=== PATIENT | male | born 1955 | race Caucasian/White ===

== ENCOUNTER → 2016-05-24 | Outpatient (CLI) | payer BC ==
[2016-05-24 14:03] LABS: Basophils % (A) 1 %; CH 30.5; Eosinophils # (A) 0.2 k/uL (0-0.7); Eosinophils % (A) 4 %; HCT 45.9 % (39.0-53.0); HDW 2.73; HGB 15.6 gm/dL (13.0-17.5); Luc # (Auto) 0.22; Luc % (Auto) 4; Lymphocytes # (A) 1.8 k/uL (1.0-4.8); Lymphocytes % (A) 32 %; MCH 30.6 pg (25.0-35.0); Mean Platelet Volume 8.8; Monocytes # (A) 0.3 k/uL (0-1.0); Monocytes % (A) 5 %; Neutrophils # (A) 3.1 k/uL (1.3-7.7); Neutrophils % (A) 55 %; RBC 5.09 m/uL (4.30-5.90); RDW 13.5 % (11.5-15.5); WBC 5.7 k/uL (3.8-10.6); WBC (Perox) 5.74
[2016-05-24 14:10] LABS: Appearance,Urine Clear (Clear); Bilirubin,Urine Negative (Negative); Glucose,Urine (UA) Negative (Negative); Ketones,Urine Negative (Negative); Leukocyte Esterase,Urine Negative (Negative); Nitrite,Urine Negative (Negative); PH, Urine 6.5 (5.0-8.0); Protein,Urine Negative (Negative); UA Billing (MACRO vs. MICRO) CHEM; Urobilinogen,Urine <2.0 mg/dL (<2.0)
[2016-05-24 14:23] LABS: ALT 47 U/L (21-72); AST 32 U/L (17-59); Alkaline Phosphatase 40 U/L (38-126); Anion Gap 11 mmol/L; Blood Urea Nitrogen 22 mg/dL (9-20); Calcium 9.9 mg/dL (8.4-10.2); Carbon Dioxide 28 mmol/L (22-30); Chloride 105 mmol/L (98-107); Cholesterol 172 mg/dL (<200); Glucose 101 mg/dL (74-99); HDL Cholesterol 49 mg/dL (40-60); Non-African American GFR(MDRD) 60 (>60 ml/min/1.73 sqM); Potassium 4.9 mmol/L (3.5-5.1); Sodium 144 mmol/L (137-145); Total Bilirubin 0.8 mg/dL (0.2-1.3); Total Protein 7.8 g/dL (6.3-8.2); Triglycerides 74 mg/dL (<150)
[2016-05-24 15:11] LABS: Hepatitis C Virus IgG Index 0.11
[2016-05-24 15:12] LABS: Hepatitis C Virus IgG Ab Negative (Negative)
[2016-05-24 15:52] LABS: Prostate Specific Antigen 1.07 ng/mL (0.00-4.00)
== END ==
LOC: LABWHC1 13:27
PROVIDERS: ATTEND Internal Medicine
DX: Z12.5 Encounter for screening for malignant neoplasm of prostate (principal); Z13.9 Encounter for screening, unspecified; E55.9 Vitamin D deficiency, unspecified; I10 Essential (primary) hypertension; I48.1 Persistent atrial fibrillation
CPT/HCPCS: 36415; 80053; 80061; 81003; 82306; 84153; 85025; 86803

== ENCOUNTER → 2016-08-29 | Outpatient (CLI) | payer BC ==
[2016-08-29 15:12] LABS: CH 31.4; CHCM 34.3; HCT 43.8 % (39.0-53.0); HDW 2.64; HGB 14.6 gm/dL (13.0-17.5); MCH 30.6 pg (25.0-35.0); MCHC 33.3 g/dL (31.0-37.0); Mean Platelet Volume 8.3; RBC 4.76 m/uL (4.30-5.90); RDW 13.9 % (11.5-15.5); WBC 6.2 k/uL (3.8-10.6)
[2016-08-29 15:19] LABS: Anion Gap 14 mmol/L; Blood Urea Nitrogen 26 mg/dL (9-20); Calcium 9.8 mg/dL (8.4-10.2); Carbon Dioxide 23 mmol/L (22-30); Chloride 106 mmol/L (98-107); Glucose 99 mg/dL (74-99); Non-African American GFR(MDRD) >60 (>60 ml/min/1.73 sqM); Potassium 3.9 mmol/L (3.5-5.1); Sodium 143 mmol/L (137-145)
== END ==
LOC: LABWHC1 14:50
PROVIDERS: ATTEND Internal Medicine Clinical Cardiac Electrophysiology
DX: I10 Essential (primary) hypertension (principal); I45.10 Unspecified right bundle-branch block; I48.0 Paroxysmal atrial fibrillation
CPT/HCPCS: 36415; 80048; 85027

== ENCOUNTER 2016-09-04 06:22 | Day surgery (SDC) | payer BC ==
[2016-08-31 13:45] VITALS: BMI 32.3
[2016-09-04] MEDS ORDERED: methylPREDNISolone SOD SUCCI 125 MG/2 ML VIAL ONE ×2 (07:20→08:18)
[2016-09-04] MEDS ORDERED: HEPARIN SODIUM,PORCINE 5,000 UNIT/ML 1 ML VIAL ONE (07:20)
[2016-09-04] MEDS ORDERED: SUCCINYLCHOLINE CHLORIDE 100 MG/5 ML SYR IV ONE (07:20)
[2016-09-04] MEDS ORDERED: diphenhydrAMINE 50 MG/ML 1 ML VIAL ONE (07:20)
[2016-09-04] MEDS ORDERED: PROPOFOL 10 MG/ML 20 ML VIAL IV ONE (07:20)
[2016-09-04] MEDS ORDERED: ISOPROTERENOL 250 MCG/1.25 ML SYR IV ONE (07:20)
[2016-09-04] MEDS ORDERED: HEPARIN SODIUM 1,000 UNIT/ML VIAL ONE (07:20)
[2016-09-04] MEDS ORDERED: PROTAMINE SULFATE 10 MG/ML 5 ML VIAL IV ONE (07:20)
[2016-09-04] MEDS ORDERED: LIDOCAINE 1% INJ 10MG/ML (20 ML MDV) ONE (07:20)
[2016-09-04] MEDS ORDERED: fentaNYL (PF) 50 MCG/ML 2 ML AMP ONE (07:20)
[2016-09-04] MEDS ORDERED: ONDANSETRON 4 MG/2 ML VIAL ONE (07:20)
[2016-09-04] MEDS ORDERED: MIDAZOLAM 2 MG/2 ML VIAL ONE (07:20)
[2016-09-04] MEDS ORDERED: FUROSEMIDE 10 MG/ML 2 ML VIAL ONE (07:20)
[2016-09-04] MEDS ORDERED: IV FLUID CONTINUATION 1,000 ML IV ONE (08:00)
[2016-09-04] MEDS ORDERED: HEPARIN SODIUM,PORCINE/D5W PMX 25,000 UNIT in DEXTROSE/WATER 1 500ML.BAG IV ONE (08:00)
[2016-09-04] MEDS ORDERED: LIDOCAINE 2% INJ 20 MG/ML SQ ONE (08:20)
[2016-09-04] MEDS ORDERED: LACTATED RINGERS 1,000 ML IV ONE (10:00)
[2016-09-04] MEDS ORDERED: IOHEXOL 350 MG/ML 100 ML BOTTLE INJ ONE (11:41)
[2016-09-04] MEDS ORDERED: ACETAMINOPHEN TAB 325 MG TAB PO PRN (11:44)
[2016-09-04] MEDS ORDERED: HYDROcodone/APAP 5-325MG 1 EACH TAB PO PRN (11:44)
--- NOTE | 2016-09-04 11:44 | P.PCN ---
Preoperative Diagnosis: 60-year-old male patient with recurrent paroxysmal atrial fibrillation with RVR , refractory to flecainide 100 mg twice daily admitted for management of atrial fibrillation. History of hypertension, SVT ablation in 2000 at [facility], atrial flutter ablation in 2005, on ELIQUIS 5 mg twice daily He underwent isolation of all 4 pulmonary veins, cryo ablation. Procedures performed (PVI - CRYO Ablation) Invasive hemodynamic monitoring while general anesthesia, right femoral arterial line for monitoring and sampling, ACT maintained above 300, blood pressure state Comprehensive diagnostic EP study with attempted arrhythmia induction CS pacing and recording Drug infusion Catheter the mapping of the tachycardia (NOT 3D mapping) Intracardiac echocardiography Pulmonary vein isolation with transseptal and comprehensive EPS, [id number] Procedure details Patient was brought to the EP lab in a fasting state. Written informed consent was obtained prior to the procedure. Procedure performed under general anesthesia After initial muscle relaxant use, muscle relaxants were not given thereafter in order to assess phrenic nerve during procedure Patient prepped and draped as per protocol Full cryo-set up with standard preparation of the cryoablation tools done Femoral Venous access obtained on the right and left groins Sheaths placed Diagnostic catheters for the high right atrium, phrenic nerve stimulation and pacing, His bundle, RV and coronary sinus placed Intracardiac echo catheter placed Long sheath placed in the right atrium Left and right transseptal catheterization performed under intracardiac echo guidance Intravenous heparin with aCT above 300 Later, catheter positioning and balloon positioning under intracardiac echo Baseline measurements Sinus cycle length 953 ms, NV interval 125, QRS 198 ms, QT interval 493, sinus mechanism right bundle branch block pattern AH intervals 93, HV interval 50. Comprehensive diagnostic EP study with drug infusion Atrial pacing performed from the high right atrium and the coronary sinus Sinus node recovery times at 600, 504 100 ms include 1201, 1366, 1610 milliseconds AV node Wenckebach block for 40 from coronary sinus Straight pacing from the HRA, AV node Wenckebach block less than 370 VA Wenckebach block greater than 500 On Isuprel AV node Wenckebach block improved to 310 ms No arrhythmias with atrial pacing Transseptal catheterization performed RA pressure 9/-3/-1 LA pressure 14/-4/5 Transseptal catheterization performed with standard sheath. The cryoablation sheath was then placed with an over the wire exchange without any acute complications. All 4 pulmonary veins were isolated in the following sequence: Left superior followed by left inferior followed by right superior followed by right inferior The cryo-ablation balloon was placed at the os of each vein 1.5 mL of IV dye was injected to confirm an occluded vein Goal during cryoablation was to achieve -30C in the first 30 seconds. If not the balloon was repositioned to obtain this result After completion of Cryoblation with durations from 180-240 seconds, entrance block was confirmed with the Attain circular catheter in a roving fashion around the antrum of the pulmonary veins Phrenic nerve pacing was performed from the SVC, right innominate vein area and diaphragm voltage was monitored as well as manually Left superior pulmonary vein 2 cryo lesions delivered, 180 seconds each with excellent parameters noted and complete isolation of the veins with the second freeze Left inferior pulmonary vein 2 cryo applications, 77 seconds and 120 seconds with complete isolation of the veins. Esophageal temperature -22 and -20C, hence no further cryo lesions delivered. Complete isolation noted with the first freeze Right superior pulmonary vein, during phrenic nerve pacing Unbolt Right inferior pulmonary vein, during phrenic nerve pacing 2 cryo lesions 180 seconds each. Prior to that to short 62nd lesions that were prematurely terminated. Excellent vein occlusion and complete isolation of the PVPs after the first freeze At the end of the procedure the Achieve catheter was once again used to check for entrance block Phrenic nerve stimulation was performed to confirm diaphragmatic stimulation the end of the procedure Cine fluoroscopy was performed at the very end of the procedure to confirm movement of both diaphragms with inspiration and expiration No pericardial effusion on intracardiac echo, normal LV function Fairly normal sized LA size At the end of the procedure the patient was extubated Heparin was reversed Venous sheaths were removed and hemostasis assured Result Successful pulmonary vein isolation using cryo-ablation Complete entrance block in all 4 veins confirmed No evidence for phrenic nerve injury Lowest esophageal temperature of -20C for the left inferior pulmonary vein Plan Continue anticoagulation Continue antihypertensive therapy Continue flecainide 100 mg twice daily for 3 months and then reduce to 50 mg twice daily thereafter Postoperative Diagnosis: Procedure(s) Performed: Implants: Indications for Procedure: Operative Findings: Description of Procedure:
[2016-09-04] MEDS ORDERED: ALBUTEROL NEBULIZED 2.5 MG/3 ML INHALATION PRN (11:45)
[2016-09-04] MEDS ORDERED: ACETAMINOPHEN IV (For NPO) 1,000 MG in EMPTY BAG 1 BAG IVPB ONE (13:00)
[2016-09-04] MEDS: LACTATED RINGERS 1,000 ML IV SCH (13:49)
[2016-09-04] MEDS: SODIUM CHLORIDE 0.9% 1,000 ML IV SCH (13:50)
[2016-09-04] MEDS: APIXABAN 5 MG TAB PO SCH (20:57)
[2016-09-04] MEDS: FLECAINIDE 50 MG TAB PO SCH (20:57)
[2016-09-04] MEDS ORDERED: MONTELUKAST 10 MG TAB PO SCH (21:00)
[2016-09-04] MEDS ORDERED: amLODIPine 10 MG TAB PO SCH (21:00)
--- NOTE | 2016-09-04 23:01 | LTR ---
September 04, 2016 RE: Vince Scott Dear Dr. Alexander, I had the pleasure of seeing Vince Scott in electrophysiology followup. Vince underwent pulmonary vein isolation using cryoablation successfully. All 4 veins were completely isolated. He will be monitored overnight on telemetry. All his antihypertensive medications and anticoagulation will be continued. I will continue flecainide for 3 months and then reduce the dose down to 50 mg twice daily. He is on lifelong anticoagulation. Thank you for entrusting me with the care of your patient. Warm regards. Sincerely, RANCHO CASTELLON MD
[2016-09-05] MEDS: LACTATED RINGERS 1,000 ML IV SCH (06:14)
[2016-09-05] MEDS: SODIUM CHLORIDE 0.9% 1,000 ML IV SCH (06:15)
[2016-09-05 07:47] LABS: Basophils % (A) 0 %; CH 31.4; CHCM 34.2; Eosinophils % (A) 0 %; HCT 39.8 % (39.0-53.0); HDW 2.71; HGB 13.2 gm/dL (13.0-17.5); Luc # (Auto) 0.09; Luc % (Auto) 1; Lymphocytes # (A) 0.8 k/uL (1.0-4.8); Lymphocytes % (A) 7 %; MCH 30.5 pg (25.0-35.0); MCHC 33.1 g/dL (31.0-37.0); MCV 92.3 fL (80.0-100.0); Mean Platelet Volume 8.1; Monocytes # (A) 0.5 k/uL (0-1.0); Monocytes % (A) 4 %; Neutrophils # (A) 9.9 k/uL (1.3-7.7); Neutrophils % (A) 88 %; RBC 4.31 m/uL (4.30-5.90); RDW 13.9 % (11.5-15.5); WBC 11.3 k/uL (3.8-10.6); WBC (Perox) 11.99
[2016-09-05 08:20] LABS: Anion Gap 15 mmol/L; Blood Urea Nitrogen 21 mg/dL (9-20); Calcium 9.2 mg/dL (8.4-10.2); Carbon Dioxide 20 mmol/L (22-30); Chloride 104 mmol/L (98-107); Glucose 137 mg/dL (74-99); Non-African American GFR(MDRD) >60 (>60 ml/min/1.73 sqM); Potassium 3.8 mmol/L (3.5-5.1); Sodium 139 mmol/L (137-145)
[2016-09-05] MEDS: APIXABAN 5 MG TAB PO SCH (08:39)
[2016-09-05] MEDS: FLECAINIDE 50 MG TAB PO SCH (08:40)
[2016-09-05] MEDS ORDERED: TRIAMTERENE-HCTZ 37.5-25MG 1 EACH CAP PO SCH (09:00)
[2016-09-05] MEDS ORDERED: METOPROLOL SUCCINATE (ER) 25 MG TAB.ER.24H PO SCH (09:00)
[2016-09-05] MEDS ORDERED: LOSARTAN 50 MG TAB PO SCH (09:00)
[2016-09-05 10:44] VITALS: TEMP 97.7
[2016-09-05 11:22] VITALS: BP 125/70; PULSE 82; RESP 18
--- NOTE | 2016-09-05 18:00 | DS ---
DATE OF ADMISSION: 09/04/2016 DATE OF DISCHARGE: 09/05/2016 Mr. Scott is a 60-year-old male patient with a history of hypertension and paroxysmal symptomatic atrial fibrillation with RVR refractory to drug therapy (Flecainide 100 mg twice daily). He underwent pulmonary vein isolation using cryoballoon. All veins were completely isolated. He was monitored overnight on telemetry. He denies any chest discomfort, dizziness, lightheadedness. He does have a little bit of sore throat. No cough, phlegm. No fever, chills. No odynophagia. No dysphagia. No pleuritic chest discomfort. His groins have healed well. On examination, his blood pressure is 125/70 mmHg. Heart rate is in the 70s and 80s. He has an underlying right bundle branch block pattern, sinus mechanism. Heart sounds are normal. No rub. No gallop. Breath sounds are normal. No rhonchi. No crackles. Groins have healed well. IMPRESSION: 1. Paroxysmal atrial fibrillation with rapid ventricular response refractory to drug therapy, symptomatic, status post pulmonary vein isolation using the cryoballoon. 2. Essential hypertension, well controlled on current medications. 3. Right bundle branch block pattern. SUGGEST: Continue anticoagulation for at least 3 months more. Continue antihypertensive therapy without any changes. I will see him again within 1 to 2 weeks post procedure, and after about 3 months I will reduce the dose of Flecainide to 50 mg twice daily.
== END 2016-09-05 17:43 | disposition home or self-care (01) ==
LOC: CATHEP 06:22 → 6SEL 11:00 → CATHEP 09-05 17:43
PROVIDERS: ATTEND Internal Medicine Clinical Cardiac Electrophysiology
DX: I48.0 Paroxysmal atrial fibrillation (principal); I10 Essential (primary) hypertension; I45.10 Unspecified right bundle-branch block; I48.92 Unspecified atrial flutter; Z79.01 Long term (current) use of anticoagulants; Z79.899 Other long term (current) drug therapy; Z88.1 Allergy status to other antibiotic agents; Z88.2 Allergy status to sulfonamides; Z91.09 Other allergy status, other than to drugs and biological substances
CPT/HCPCS: 93623; 93662; 93609; 93656; 85347; 80048; 85025; C1894 ×3; C1769 ×4; C1730 ×2; C1759; C1893; C1733; C1766; J2001 ×2; J2250; J2720; J1200; J1644 ×3; J1940; J2930; Q9967; J2405; J3010; J0131; J0330; J2704

== ENCOUNTER → 2017-10-13 | Outpatient (CLI) | payer BC ==
[2017-10-13 13:00] LABS: ALT 64 U/L (21-72); AST 45 U/L (17-59); Albumin 4.8 g/dL (3.5-5.0); Alkaline Phosphatase 45 U/L (38-126); Anion Gap 12 mmol/L; Blood Urea Nitrogen 17 mg/dL (9-20); Calcium 10.1 mg/dL (8.4-10.2); Carbon Dioxide 26 mmol/L (22-30); Chloride 104 mmol/L (98-107); Cholesterol 175 mg/dL (<200); Glucose 99 mg/dL (74-99); HDL Cholesterol 57 mg/dL (40-60); LDL Cholesterol,Calculated 102 mg/dL (0-99); Potassium 4.6 mmol/L (3.5-5.1); Sodium 142 mmol/L (137-145); Total Bilirubin 0.4 mg/dL (0.2-1.3); Total Protein 7.6 g/dL (6.3-8.2); Triglycerides 79 mg/dL (<150)
[2017-10-13 13:08] LABS: Basophils % (A) 1 %; Eosinophils # (A) 0.2 k/uL (0-0.7); Eosinophils % (A) 3 %; HCT 47.5 % (39.0-53.0); HGB 15.5 gm/dL (13.0-17.5); Lymphocytes # (A) 1.9 k/uL (1.0-4.8); Lymphocytes % (A) 30 %; MCH 29.7 pg (25.0-35.0); MCHC 32.6 g/dL (31.0-37.0); MCV 91.2 fL (80.0-100.0); Mean Platelet Volume 7.7; Monocytes # (A) 0.3 k/uL (0-1.0); Monocytes % (A) 5 %; Neutrophils # (A) 3.8 k/uL (1.3-7.7); Neutrophils % (A) 59 %; Platelet Count 213 k/uL (150-450); RBC 5.21 m/uL (4.30-5.90); RDW 14.3 % (11.5-15.5); WBC 6.4 k/uL (3.8-10.6)
[2017-10-13 13:29] LABS: PSA Annual Screen 1.11 ng/mL (0.00-4.00)
[2017-10-13 17:20] LABS: Rheumatoid Factor 413 IU/mL (0-15)
[2017-10-15 12:51] LABS: Cyclic Citrullinated Pep IgG NEGATIVE (NEGATIVE)
== END | disposition home or self-care (01) ==
LOC: LABMAIN 12:03
PROVIDERS: ATTEND Internal Medicine
DX: I48.91 Unspecified atrial fibrillation (principal); M25.50 Pain in unspecified joint; I10 Essential (primary) hypertension; Z12.5 Encounter for screening for malignant neoplasm of prostate
CPT/HCPCS: 36415; 80061; 80053; 84443; 85025; 86431; 86038; 86200; G0103

== ENCOUNTER → 2017-10-20 | Outpatient (CLI) | payer BC ==
[2017-10-20 12:08] LABS: Appearance,Urine Clear (Clear); Bilirubin,Urine Negative (Negative); Blood,Urine Negative (Negative); Color,Urine Yellow; Glucose,Urine (UA) Negative (Negative); Ketones,Urine Negative (Negative); Leukocyte Esterase,Urine Negative (Negative); Nitrite,Urine Negative (Negative); PH, Urine 5.5 (5.0-8.0); Protein,Urine Negative (Negative); Specific Gravity,Urine 1.013 (1.001-1.035); Urobilinogen,Urine <2.0 mg/dL (<2.0)
== END | disposition home or self-care (01) ==
LOC: LABWHC1 11:42
PROVIDERS: ATTEND Internal Medicine
DX: I10 Essential (primary) hypertension (principal); Z12.5 Encounter for screening for malignant neoplasm of prostate
CPT/HCPCS: 36415; 81003; 85652

== ENCOUNTER → 2017-11-14 | Outpatient (CLI) | payer BC ==
--- NOTE | 2017-11-14 17:05 | US ---
EXAMINATION TYPE: US kidneys/renal and bladder DATE OF EXAM: 11/14/2017 COMPARISON: NONE CLINICAL HISTORY: N08.Kidney disease. Right flank pain EXAM MEASUREMENTS: Right Kidney: 14.4 x 4.6 x 3.8 cm Left Kidney: 12.5 x 6.1 x 4.9 cm Right Kidney: enlarged, mild dilated collecting system, echogenic area lower pole Left Kidney: no evidence of hydronephrosis Bladder: appears wnl Bilateral Jets seen: yes IMPRESSION: 1. Mild right hydronephrosis.
== END | disposition home or self-care (01) ==
LOC: RADUSWWP 15:31
PROVIDERS: ATTEND Internal Medicine
DX: N13.30 Unspecified hydronephrosis (principal)
CPT/HCPCS: 76770

== ENCOUNTER → 2021-05-11 | Outpatient (CLI) | payer MEDICARE ==
--- NOTE | 2021-05-11 16:40 | US ---
EXAMINATION TYPE: US renal artery duplex complet DATE OF EXAM: 05/11/2021 COMPARISON: NONE CLINICAL HISTORY: Q27.1 RENAL ARTERY STENOSIS. Pt. has had intermittent bouts of severe elevations of HTN. Right pyloplasty in 1979. MEASUREMENTS: Technically difficult study, patient of large body habitus. RENAL SIZE: Rt Kidney: 14.4 x 4.6 x 3.8cm Lt Kidney: 12.3 x 5.0 x 5.0cm RESISTANCE INDEX Right: 0.54 Left: 0.54 RA/AO RATIO (< 3.5 ) Right: 1.4 Left: 3.8 RA VELOCITY ( < 180 cm/s) Right: 102cm/s Left: 274cm/s Mild right hydro. Both kidney's measure large, more so on right. Unable to visualize right renal art kimberly other than small distal portion for velocities. This may be to small size and tortuosity. Elevati on of left proximal renal artery. IMPRESSION: 1. Elevated velocity and ratio of the left renal artery. Additional workup for renal artery stenosis of the left renal artery is recommended.
== END | disposition home or self-care (01) ==
LOC: RADUSWWP 08:59
PROVIDERS: ATTEND Internal Medicine Clinical Cardiac Electrophysiology
DX: Q27.1 Congenital renal artery stenosis (principal)
CPT/HCPCS: 93975

== ENCOUNTER 2022-07-17 07:34 | Day surgery (SDC) | payer MEDICARE, OTHER ==
[~2022-07-17 07:34] MED LIST: ACETAMINOPHEN TAB 500 MG TAB PO PRN; HEPARIN SODIUM,PORCINE/PF 5,000 UNIT/0.5 ML SYRINGE SQ PRN
[2022-07-17] MEDS ORDERED: LACTATED RINGERS 1,000 ML IV SCH (07:37)
[2022-07-17] MEDS ORDERED: ONDANSETRON 4 MG/2 ML VIAL IVP ONE (07:37)
[2022-07-17] MEDS ORDERED: DEXAMETHASONE SOD PHOSPHATE 4 MG/ML 1 ML VIAL IV ONE (07:37)
[2022-07-17] MEDS ORDERED: HYDROmorphone 0.5 MG/0.5 ML SYRINGE IVP PRN (07:37)
[2022-07-17 07:51] VITALS: RESP 16
--- NOTE | 2022-07-17 08:51 | P.GSHP ---
History of Present Illness H&P Date: 07/17/22 Chief Complaint: Recurrent right inguinal hernia 66-year-old male last seen in April. Patient with previous repair laparoscopically of a right inguinal hernia with mesh. Patient has a symptomatic enlarged recurrent hernia on the right-hand side. He also was found have a asymptomatic small recurrent left inguinal hernia. It should be noted both hernias were repaired open as an infant. Here today for elective open repair of the recurrent right inguinal hernia. 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 Past Anesthesia/Blood Transfusion Reactions: Motion Sickness, Postoperative Nausea & Vomiting (PONV) Smoking Status: Never smoker - Past Family History Father Family Medical History: Cancer Medications and Allergies Home Medications Medication Instructions Recorded Confirmed Type Montelukast Sodium [Singulair] 10 mg PO HS 03/01/15 07/17/22 History amLODIPine [Norvasc] 5 mg PO HS 03/01/15 07/17/22 History levalbuterol HCL [Xopenex] 1.25 mg INHALATION Q4H PRN 03/01/15 07/17/22 History Flecainide Acetate [Tambocor] 50 mg PO Q12HR 05/24/16 07/17/22 History Metoprolol Succinate [Toprol XL] 12.5 mg PO DAILY 05/24/16 07/17/22 History Triamterene-Hctz 37.5-25Mg 1 cap PO DAILY 05/24/16 07/17/22 History [Dyazide 37.5-25 Capsule] Apixaban [Eliquis] 5 mg PO BID 06/16/16 07/17/22 History Irbesartan [Avapro] 150 mg PO BID 07/12/22 07/17/22 History Allergies Allergy/AdvReac Type Severity Reaction Status Date / Time amoxicillin trihydrate Allergy Rash/Hives Verified 07/17/22 07:48 [From Augmentin] azithromycin [From Zithromax] Allergy Rash/Hives Verified 07/17/22 07:48 digoxin Allergy Rapid Verified 07/17/22 07:48 Heart Rate iodine Allergy wheezing/hi Verified 07/17/22 07:48 ves levofloxacin [From Levaquin] Allergy Rash/Hives Verified 07/17/22 07:48 potassium clavulanate Allergy Rash/Hives Verified 07/17/22 07:48 [From Augmentin] Sulfa (Sulfonamide Allergy Rash/Hives Verified 07/17/22 07:48 Antibiotics) iv dye Allergy Wheezing/hi Uncoded 07/17/22 07:48 ves Surgical - Exam Vital Signs Temp Pulse Resp BP Pulse Ox 98.1 F 74 16 146/87 96 07/17/22 07:50 07/17/22 07:50 07/17/22 07:50 07/17/22 07:50 07/17/22 07:50 Physical exam: General: Well-developed, well-nourished HEENT: Normocephalic, sclerae nonicteric Abdomen: Nontender, nondistended, moderate size right inguinal hernia, small reducible left inguinal hernia, small reducible umbilical hernia Extremities: No edema Neuro: Alert and oriented Assessment and Plan (1) Recurrent right inguinal hernia Narrative/Plan: Will proceed with open repair recurrent right inguinal hernia with mesh at this time. Risks of bleeding, infection, recurrence, bladder and bowel injury, numbness, nerve injury were discussed with the patient. The patient understands and wishes to proceed. Current Visit: Yes Status: Acute Code(s): K40.91 - UNILATERAL INGUINAL HERNIA, W/O OBST OR GANGRENE, RECURRENT SNOMED Code(s): 542700842
[2022-07-17] MEDS ORDERED: MIDAZOLAM 2 MG/2 ML VIAL ONE (09:01)
[2022-07-17] MEDS ORDERED: SUCCINYLCHOLINE CHLORIDE 200 MG/10 ML VIAL IV ONE (09:01)
[2022-07-17] MEDS ORDERED: LIDOCAINE 2% INJ 20 MG/ML (2 ML VIAL) ONE (09:01)
[2022-07-17] MEDS ORDERED: NEOSTIGMINE 1 MG/ML 10 ML VIAL ONE (09:01)
[2022-07-17] MEDS ORDERED: PROPOFOL 10 MG/ML 20 ML VIAL IV ONE (09:01)
[2022-07-17] MEDS ORDERED: PHENYLEPHRINE-0.9% NACL SYG 1,000 MCG/10 ML SYRINGE ONE (09:01)
[2022-07-17] MEDS ORDERED: KETOROLAC 15 MG/ML 1 ML VIAL ONE (09:01)
[2022-07-17] MEDS ORDERED: ROCURONIUM 10 MG/ML (5 ML VIAL) IV ONE (09:01)
[2022-07-17] MEDS ORDERED: GLYCOPYRROLATE 0.2 MG/ML 2 ML VIAL ONE (09:01)
[2022-07-17] MEDS ORDERED: fentaNYL (PF) 50 MCG/ML 2 ML AMP ONE (09:01)
[2022-07-17] MEDS ORDERED: BUPIVACAIN-EPI 0.25%-1:200,000 30 ML VIAL SQ ONE ×3 (09:33→09:38)
[2022-07-17] MEDS ORDERED: LACTATED RINGERS 1,000 ML IV ONE ×2 (10:09)
[2022-07-17 10:52] VITALS: TEMP 97.5
--- NOTE | 2022-07-17 10:58 | P.OP ---
Date of Procedure: 07/17/22 Procedure(s) Performed: PREOPERATIVE DIAGNOSIS: Recurrent right inguinal hernia POSTOPERATIVE DIAGNOSIS: Same PROCEDURE: Open repair recurrent right inguinal hernia SURGEON: Dr. Zuñiga ANESTHESIA: General OPERATIVE PROCEDURE DETAILS: Patient was placed in the operating table in the supine position and placed under general anesthesia. An oblique incision was made in the right groin. Dissection down through the subcutaneous tissues took place using electrocautery. The external oblique fascia was incised using a scalpel. This opening was lengthened using the Metzenbaum scissors. The spermatic cord was encircled with a Equinunk drain. The structures were identified and preserved. Careful dissection revealed a recurrent hernia coming from what appeared represents the indirect space. I could palpate the inferior epigastric vessels medially. The size of the defect here was about 1.5-2 cm in diameter. The hernia emanating through there was a large volume of fatty tissue. No discrete sac was seen. The tissues were reduced back into the preperitoneal space. No direct hernia was seen. The large Prolene hernia system was utilized. The inner circular portion of the mesh was placed in the preperitoneal space and flattened out appropriately. Outer portion of the mesh was cut and wrapped around the spermatic cord and sutured back to itself with 0 silk sutures. The mesh was then secured to the pubic tubercle the folding edge of the inguinal ligament and the conjoined tendon using interrupted 0 Vicryl sutures. The external oblique was then reapproximated using a running 2-0 Vicryl suture. The subcutaneous tissues were reapproximated using a 3-0 Vicryl sutures. The skin was closed using 4-0 Monocryl sutures. Steri-Strips and sterile dressings were then applied. TYPE OF MESH USED: Large Prolene hernia system LOCATION OF MESH: Preperitoneal and onlay FIXATION: 0 Vicryl PREOPERATIVE DISCUSSION ON SMOKING CESSASTION: Yes PREOPERATIVE DISCUSSION ON MORBID OBESITY: Yes PREOPERATIVE DISCUSSION ON APPROPRIATE USE OF NARCOTIC USE: Yes PREOPERATIVE EDUCATION: Multi Modal, Smoking Cessation and Weight Loss with BMI over 35. DISPOSITION: Stable to recovery room
[2022-07-17] MEDS ORDERED: ACETAMINOPHEN TAB 325 MG TAB PO SCH (12:00)
[2022-07-17 13:50] VITALS: BP 148/82; PULSE 71
[2022-07-17] MEDS ORDERED: IBUPROFEN 600 MG TAB PO SCH (14:00)
== END 2022-07-17 14:32 | disposition home or self-care (01) ==
LOC: OR 07:34
PROVIDERS: ATTEND Surgery
DX: K40.91 Unilateral inguinal hernia, without obstruction or gangrene, recurrent (principal); I48.91 Unspecified atrial fibrillation; J45.909 Unspecified asthma, uncomplicated; I10 Essential (primary) hypertension; Z98.890 Other specified postprocedural states; Z79.01 Long term (current) use of anticoagulants; Z88.0 Allergy status to penicillin; Z88.1 Allergy status to other antibiotic agents; Z79.899 Other long term (current) drug therapy
CPT/HCPCS: 49520; C1781; J2250; J0330; J1100; J2710; J0690; J2405; J3010; J1885; J2370; J2704; J1790; J1644; J2001

== ENCOUNTER → 2024-01-18 | Outpatient (CLI) | payer MEDICARE ==
--- NOTE | 2024-01-18 11:07 | XR ---
EXAMINATION TYPE: XR chest 2V DATE OF EXAM: 01/18/2024 COMPARISON: 02/19/2016 HISTORY: Chest pain TECHNIQUE: Frontal and lateral views of the chest are obtained. FINDINGS: There is no focal air space opacity, pleural effusion, or pneumothorax seen. The cardiac silhouette size is within normal limits. The osseous structures are intact. IMPRESSION: No acute cardiopulmonary process. [facility], , 01/18/2024 11:05 AM
== END | disposition home or self-care (01) ==
LOC: RADXRMAIN 10:35
PROVIDERS: ATTEND Internal Medicine
DX: N64.4 Mastodynia (principal)
CPT/HCPCS: 71046

== ENCOUNTER → 2024-01-18 | Outpatient (CLI) | payer MEDICARE ==
[2024-01-18 16:18] LABS: BUN/Creat Ratio 20.08 Ratio (12.00-20.00); Blood Urea Nitrogen 26.1 mg/dL (9.0-27.0); Carbon Dioxide 22.3 mmol/L (21.6-31.8); Chloride 104 mmol/L (96-109); Glucose 104 mg/dL (70-110); Magnesium 1.9 mg/dL (1.5-2.4); Potassium 4.7 mmol/L (3.5-5.5); Sodium 141 mmol/L (135-145)
== END | disposition home or self-care (01) ==
LOC: LABWHC1 11:21
PROVIDERS: ATTEND Nurse Practitioner Adult Health
DX: I10 Essential (primary) hypertension (principal)
CPT/HCPCS: 36415; 80048; 83735

== ENCOUNTER → 2024-06-05 | Outpatient (CLI) | payer MEDICARE ==
[2024-06-05 15:08] LABS: African American GFR (CKD) 78 (>60 ml/min/1.73 sqM); Blood Urea Nitrogen 26 mg/dL (9-20); Non-African American GFR(CKD) 68 (>60 ml/min/1.73 sqM)
--- NOTE | 2024-06-05 17:04 | CT ---
EXAMINATION TYPE: CT angio head neck and noncontrast CT brain DATE OF EXAM: 06/05/2024 4:37 PM COMPARISON: None. CLINICAL INDICATION: Male, 68 years old with history of G44.1 VASCULAR HEADACHE, dizziness and headac hes, TECHNIQUE: Unenhanced CT was performed initially. Axially acquired helical CT Angiogram of the Neck was obtained with and without contrast. Axial images are supplemented with coronal and sagittal MIP r econstructions. 3D reconstructions were also performed and were post-processed at an independent work station. Estimated carotid stenosis was calculated using the NASCET criteria. Contrast CTA of the ci rcle of [place] was performed 3-D reconstruction imaging obtained at a separate workstation. IV CONTRAST: without and with IV Contrast, patient injected with 65 mL of Isovue 370. (None if empty) CT DLP: 1884.3 mGycm, Automated exposure control for dose reduction was used. FINDINGS: NECK: Right carotid system: Mild plaque is seen of the right common carotid artery. There is mild plaque a lso noted at the carotid bulb and proximal ICA. No significant diameter reduction. ECA is patent. Right vertebral artery appears unremarkable. Left carotid system: Mild plaque is seen of the left common carotid artery. There is mild plaque als o noted at the carotid bulb and proximal ICA. No significant diameter reduction. ECA is patent. Lef t vertebral artery appears unremarkable. BRAIN: Vertebrobasilar system as well as intracranial portions of the internal carotid arteries and their ma douglas tributaries are patent. I do not see evidence for sizable aneurysm or vascular malformation. Pl ease note MRI provides greater sensitivity and specificity. Visualized brain appears grossly unremar kable. IMPRESSION: 1. No evidence for hemodynamically significant stenosis at the carotid bifurcations. No significant diameter reduction to account for the patient's symptoms. 2. No evidence for intracranial aneurysm or high-grade stenosis. EXAMINATION TYPE: CT angio head neck DATE OF EXAM: 06/05/2024 4:37 PM COMPARISON: None. CLINICAL INDICATION: Male, 68 years old with history of G44.1 VASCULAR HEADACHE, dizziness and headac hes, TECHNIQUE: Axial CT was performed with sagittal and coronal reformats. IV CONTRAST: without and with IV Contrast, patient injected with 65 mL of Isovue 370. (None if empty) CT DLP: 1884.3 mGycm, Automated exposure control for dose reduction was used. FINDINGS: The ventricles, basal cisterns and sulci overlying the cerebral convexities demonstrate mild enlargem ent. There is no evidence for intracranial hemorrhage or sulcal effacement. There is decreased attenuation about the periventricular white matter and deep white matter of both c erebral hemispheres, compatible with chronic small vessel ischemia. Differential diagnosis does inclu de demyelination. No mass effects are seen.No midline shift. Osseous calvarium is intact. If symptoms persist consider MRI. IMPRESSION: 1. 1. Age related atrophic and chronic small vessel ischemic change without acute intracranial proce ss seen at this time. [facility], , 06/05/2024 5:02 PM
== END | disposition home or self-care (01) ==
LOC: RADCTMAIN 14:29
PROVIDERS: ATTEND Internal Medicine
DX: G44.1 Vascular headache, not elsewhere classified (principal); G31.1 Senile degeneration of brain, not elsewhere classified; I67.82 Cerebral ischemia
CPT/HCPCS: 82565; 84520; 70496; 70498; 36415; Q9967

== ENCOUNTER → 2024-08-01 | Outpatient (CLI) | payer MEDICARE | END | disposition home or self-care (01) | LOC: LABWHC1 11:32 | PROVIDERS: ATTEND Internal Medicine | DX: E55.9 Vitamin D deficiency, unspecified (principal); R79.9 Abnormal finding of blood chemistry, unspecified | CPT/HCPCS: 36415; 82180; 82306; 82607; 83036; 84207; 84425; 84597 ==